=== PATIENT | male | born 1940 | race Asian ===

== ENCOUNTER → 2016-06-13 | Outpatient (CLI) | payer MEDICARE, OTHER ==
[~2016-06-13] VITALS: Ht 165.1 cm; Wt 78.4 kg
[~2016-06-13] MED LIST: ACLI400A2 IH; AMLO2.5T PO; ASPI-556 PO; ASPI325T PO; ATOR40TA28 PO; BENA40TA3 PO; DOCU250C91 PO; FERR-89 PO; FINA5TAB41 PO; FURO20TA4 PO; FURO40 PO; HYDR25 PO; INSLAN SQ; INSNOV SQ; LOSA100T8 PO; METF500T4 PO; METO-325 PO; OMEP20 PO; PIOG30TA2 PO; SIMV40TA5 PO; SITA50 PO; SYMB8060 IH; TAMS0.4C32 PO
[2016-06-13 11:11] VITALS: BP 127/67
== END | disposition home or self-care (01) ==
LOC: SRCNTR 11:00
PROVIDERS: ATTEND Internal Medicine Critical Care Medicine
DX: J44.9 Chronic obstructive pulmonary disease, unspecified (principal); E78.5 Hyperlipidemia, unspecified; E11.9 Type 2 diabetes mellitus without complications; K21.9 Gastro-esophageal reflux disease without esophagitis; I10 Essential (primary) hypertension
CPT/HCPCS: G0463

== ENCOUNTER → 2016-09-03 | Outpatient (CLI) | payer MEDICARE, OTHER ==
[~2016-09-03] MED LIST changes: -ASPI325T PO; -HYDR25 PO; +HYDR25TA84 PO
== END | disposition home or self-care (01) ==
LOC: RADMN 08:47
PROVIDERS: ATTEND Internal Medicine Critical Care Medicine
DX: J84.10 Pulmonary fibrosis, unspecified (principal)
CPT/HCPCS: 71250

== ENCOUNTER → 2016-09-09 | Outpatient (CLI) | payer MEDICARE, OTHER ==
[~2016-09-09] VITALS: Ht 165.1 cm; Wt 77.5 kg
[~2016-09-09] MED LIST changes: -FERR-89 PO; +FERS325 PO; +HYDR25 PO; -HYDR25TA84 PO
[2016-09-09 12:12] VITALS: BP 150/71
== END | disposition home or self-care (01) ==
LOC: SRCNTR 12:01
PROVIDERS: ATTEND Internal Medicine Critical Care Medicine
DX: E11.9 Type 2 diabetes mellitus without complications (principal); E78.5 Hyperlipidemia, unspecified; K21.9 Gastro-esophageal reflux disease without esophagitis; J44.1 Chronic obstructive pulmonary disease with (acute) exacerbation; I10 Essential (primary) hypertension
CPT/HCPCS: G0463

== ENCOUNTER → 2016-09-24 | Outpatient (CLI) | payer MEDICARE, OTHER ==
[~2016-09-24] VITALS: Ht 165.1 cm; Wt 78.0 kg
[~2016-09-24] MED LIST changes: -BENA40TA3 PO; +FERR-89 PO; -FERS325 PO; -FURO20TA4 PO; -HYDR25 PO; +HYDR25TA84 PO; -METF500T4 PO; -PIOG30TA2 PO; -SIMV40TA5 PO
[2016-09-24 09:28] VITALS: BP 101/53
== END | disposition home or self-care (01) ==
LOC: SRCNTR 09:05
PROVIDERS: ATTEND Internal Medicine Critical Care Medicine
DX: J44.9 Chronic obstructive pulmonary disease, unspecified (principal); I10 Essential (primary) hypertension
CPT/HCPCS: G0463

== ENCOUNTER → 2016-11-28 | Outpatient (CLI) | payer MEDICARE, OTHER ==
[~2016-11-28] VITALS: Ht 165.1 cm; Wt 78.0 kg
[2016-11-28 13:42] VITALS: BP 112/57
== END | disposition home or self-care (01) ==
LOC: SRCNTR 13:15
PROVIDERS: ATTEND Internal Medicine Critical Care Medicine
DX: J44.9 Chronic obstructive pulmonary disease, unspecified (principal); J84.10 Pulmonary fibrosis, unspecified; I25.10 Atherosclerotic heart disease of native coronary artery without angina pectoris; E11.9 Type 2 diabetes mellitus without complications; I10 Essential (primary) hypertension; Z95.1 Presence of aortocoronary bypass graft
CPT/HCPCS: G0463

== ENCOUNTER → 2017-04-16 | Outpatient (CLI) | payer MEDICARE, OTHER ==
[~2017-04-16] VITALS: Ht 165.1 cm; Wt 80.0 kg
[~2017-04-16] MED LIST changes: +LOSA100T2 PO; -LOSA100T8 PO; -METO-325 PO; +METO-391 PO
[2017-04-16 13:25] VITALS: BP 143/67
== END | disposition home or self-care (01) ==
LOC: SRCNTR 13:19
PROVIDERS: ATTEND Internal Medicine Critical Care Medicine
DX: J44.1 Chronic obstructive pulmonary disease with (acute) exacerbation (principal); E78.5 Hyperlipidemia, unspecified; E11.9 Type 2 diabetes mellitus without complications; I10 Essential (primary) hypertension; K21.9 Gastro-esophageal reflux disease without esophagitis; F10.21 Alcohol dependence, in remission; Z87.891 Personal history of nicotine dependence
CPT/HCPCS: G0463

== ENCOUNTER → 2017-07-11 | Outpatient (CLI) | payer MEDICARE, OTHER ==
[~2017-07-11] VITALS: Ht 165.1 cm; Wt 80.0 kg
[2017-07-11 08:40] VITALS: BP 146/75
== END | disposition home or self-care (01) ==
LOC: SRCNTR 08:39
PROVIDERS: ATTEND Internal Medicine Critical Care Medicine
DX: J44.1 Chronic obstructive pulmonary disease with (acute) exacerbation (principal); E78.5 Hyperlipidemia, unspecified; E11.9 Type 2 diabetes mellitus without complications; K21.9 Gastro-esophageal reflux disease without esophagitis; I10 Essential (primary) hypertension
CPT/HCPCS: G0463

== ENCOUNTER → 2018-02-24 | Outpatient (CLI) | payer MEDICARE, OTHER ==
[~2018-02-24] VITALS: Ht 165.1 cm; Wt 81.0 kg
[~2018-02-24] MED LIST changes: -AMLO2.5T PO; +AMLO2.5T3 PO
[2018-02-24 16:16] VITALS: BP 146/69
== END | disposition home or self-care (01) ==
LOC: SRCNTR 15:49
PROVIDERS: ATTEND Internal Medicine Critical Care Medicine
DX: J44.1 Chronic obstructive pulmonary disease with (acute) exacerbation (principal); E78.5 Hyperlipidemia, unspecified; E11.9 Type 2 diabetes mellitus without complications; I10 Essential (primary) hypertension; K21.9 Gastro-esophageal reflux disease without esophagitis
CPT/HCPCS: G0463

== ENCOUNTER → 2019-05-19 | Outpatient (CLI) | payer MEDICARE, OTHER ==
[~2019-05-19] VITALS: Ht 165.1 cm; Wt 77.5 kg
[~2019-05-19] MED LIST changes: -ACLI400A2 IH; +ACLI400A3 IH; -AMLO2.5T3 PO; +AMLO2.5T4 PO; +AMLO5TAB66 PO; +COLC0.6C3 PO; +DOCU-342 PO; -DOCU250C91 PO; +DULA0.75 SQ; +FAMO20TA8 PO; +FINA-27 PO; -FINA5TAB41 PO; +IBUP-2076 PO; +TAMS-13 PO; -TAMS0.4C32 PO
[2019-05-19 11:55] VITALS: BP 93/59
== END | disposition home or self-care (01) ==
LOC: SRCNTR 11:54
PROVIDERS: ATTEND Internal Medicine Critical Care Medicine
DX: J44.1 Chronic obstructive pulmonary disease with (acute) exacerbation (principal); E78.5 Hyperlipidemia, unspecified; E11.9 Type 2 diabetes mellitus without complications; K21.9 Gastro-esophageal reflux disease without esophagitis; I10 Essential (primary) hypertension; G47.33 Obstructive sleep apnea (adult) (pediatric); J96.11 Chronic respiratory failure with hypoxia; Z79.4 Long term (current) use of insulin; Z79.82 Long term (current) use of aspirin; Z79.899 Other long term (current) drug therapy; Z98.890 Other specified postprocedural states
CPT/HCPCS: G0463